=== PATIENT | female | born 1995 | race African-American/Black ===

== ENCOUNTER 2021-11-25 03:00 | Inpatient (IN) | payer MEDICAID ==
[~2021-11-25] VITALS: Ht 160 cm; Wt 86.8 kg
[2021-11-25] VITALS (35 sets, daily range): BP systolic 114–167; BP diastolic 57–110; PULSE 85–105; TEMP 97.5–98.2
--- NOTE | 2021-11-25 03:00 | NUR ---
Pt arrives to unit by EMS stretcher with complaint of contractions. Pt states they woke her up from sleep. Denies LOF or vaginal bleeding. Reports good movement. Pt states she just moved here from [place] and has not received care this . She has only been seen in an ED in [place] in September and they determined a due date of 11/20. Pt reports only 1 fetus. Denies headaches, blurry vision or RUQ pain. Pt reports this is her 4 and has had 4 normal vaginal deliveries around her due date. Pt denies every being diagnoses with pre-eclampsia or gestational diabetes with prior pregnancies. Pt arrived with gown on and 18G IV in left forearm. Pt reports having problems with high blood pressure at times but is not on medication. US and toco explained and applied. Vitals obtained. SVE by KellieRN /chris Pt does not appear to be uncomfortable. This RN in room for 20 minutes doing admission intake and no contractions during that time.
--- NOTE | 2021-11-25 03:50 | NUR ---
This RN to bedside to review plan of care. Pt agreeable to plan. When asked if she has had more contractions since arrival pt states "a little one".
--- NOTE | 2021-11-25 04:33 | NUR ---
Pt sleeping upon entering room. Pt up to bathroom to void. Lab at bedside. Reviewed plan of care.
[2021-11-25] MEDS ORDERED: PRENATAL TABLET PO (04:46)
[2021-11-25 04:51] LABS: COLLECTION METHOD CLEAN CATCH
[2021-11-25 04:59] LABS: EOS # 0.1 K/mm3 (0.0-0.7); EOS % 1.3 % (0.0-4.0); GRAN # 4.8 K/mm3 (1.4-6.5); GRAN % 68.8 % (42.2-75.2); HEMOGLOBIN 10.7 g/dl (12.5-16.0); LYMPH # 1.2 K/mm3 (1.2-3.4); LYMPH % 17.6 % (20.0-51.0); MEAN CELL VOLUME 98 fl (80.0-100.0); MEAN CORPUSCULAR HEMOGLOBIN 33 pg (27-31); MEAN CORPUSCULAR HGB CONC 34 g/dl (33.0-37.0); MEAN PLATELET VOLUME 10.6 fl (7.4-10.4); MONO # 0.8 K/mm3 (0.1-0.6); MONO % 11.7 % (1.7-9.3); PLATELET COUNT 188 K/mm3 (130-400); RED BLOOD COUNT 3.26 M/mm3 (4.10-5.30); REDCELL DISTRIBUTION WIDTH-CV 12.8 % (11.5-14.5)
--- NOTE | 2021-11-25 05:00 | NUR ---
Category 1 FHR tracing obtained. Monitors off. Plan of care reviewed.
[2021-11-25 05:03] LABS: HEMATOCRIT 31.8 % (37.0-47.0)
[2021-11-25 05:04] LABS: MUCOUS Present (NOT PRESENT); PH 6 (5-8); SQUAMOUS EPITHELIAL 0-2 /hpf (0-10); URINE APPEARANCE Clear (CLEAR/HAZY); URINE BACTERIA None Seen /hpf (NONE SEEN); URINE BILIRUBIN Negative (NEGATIVE); URINE BLOOD Negative (NEGATIVE); URINE COLOR Yellow (YELLOW); URINE GLUCOSE 1+ (NEGATIVE); URINE KETONE Negative (NEGATIVE); URINE LEUKOCYTE ESTERASE Negative (NEGATIVE); URINE NITRATE Negative (NEGATIVE); URINE PROTEIN(semi-quant) Negative (NEGATIVE); URINE RBC 0-2 /hpf (0-2)
[2021-11-25 05:16] LABS: TRICYCLIC ANTIDEPRESS URINE NEGATIVE
[2021-11-25 05:19] LABS: ALBUMIN 2.7 gm/dL (3.5-5.0); BILIRUBIN,TOTAL 0.4 mg/dL (0.2-1.2); CALCIUM 8.9 mg/dL (8.4-10.2); CREATININE, serum 0.64 mg/dL (0.57-1.11); POTASSIUM 3.6 mmol/L (3.5-4.5); TOTAL PROTEIN 6.3 gm/dL (6.2-8.1)
[2021-11-25 05:58] LABS: HIV 1/2 Antibodies Non-Reactive; HIV-1p24 Antigen Non-Reactive
--- NOTE | 2021-11-25 07:40 | NUR ---
plan of care discussed and pt updated. call light within reach. pt oriented to room.
--- NOTE | 2021-11-25 08:27 | NUR ---
sr. social media & mobile manager called. updated on plan of care for patient.
--- NOTE | 2021-11-25 15:12 | NUR ---
ANESTHESIA CALLED FOR EPIDURAL
--- NOTE | 2021-11-25 16:12 | NUR ---
THEA responded to consult. The patient came into today with contractions. The patient has had no care and per an ultrasound today, she is 37.5 weeks. The hospital is admitting her to be induced. The patient is also concerned about insurance and her stay being covered here. THEA met with the patient. The patient lives in [place] with her four other children. They are 7, 5, 3, and 2-years old. The patient states that her partner, (Young Finch), the father of her children and the one on the way is staying with their children while she is here. She states that her sister, Cecy, will be coming to [place] to stay with their children, so Young can come up to the hospital. She states that she moved here in April to be closer to her family. She has family that live in [place] and [place]. She states that Young stayed back in [place], because he has other children that live there. She states that she is not working, but Young is their financial support. THEA addressed how the patient did not have care. The patient states that she found out she was right before she moved to [place]. She states that she has [place] Medicaid and it does not cover healthcare in [place], so she did not want to or could afford [id number] costs. She states that she was taking vitamins during . The patient reports that she did go back to [place] in September and had an ER visit to confirm how far along she was and the sex of the baby. The patient reports that she has a carseat and bassinet for baby. She states that she has not applied or WIC yet. THEA provided her with [facility]'s Resource Guide and located the number for her to call to apply or WIC. The patient expressed her concerns about her hospital stay being covered and care afterwards. THEA had consulted Financial Counselor, Shabbir. Shabbir plans to meet with the patient to complete a Medicaid application and FAA. The patient had no other concerns for THEA. THEA made a CPS report, due to no care. CPS ID#[id number].
--- NOTE | 2021-11-25 17:40 | NUR ---
1705 Pt requests SVE due to pressure. This RN SVE /+1. 1708 SANDRA CALLED FOR DELIVERY. says pt was passed off to Melany 1709 Melany called for delivery. 1720 Melany in patient's room. Pt pushes with three contractions. 1731 Spontaneous delivery of viable male infant. bulb suctioned and stimulated. to patient's abdomen. Cord clamped by Dr. Mosley and cut by SHAYY. Erasto Johns takes over care of infant. 1734 Spontaneous delivery of placenta. Pitocin bolus started per protocol. No lacerations noted by Dr. Mosley. Fundal massage done. Firm/midline. Scant amt of bleeding noted. Pericare done. Clean pad placed. Safety precautions and plan of care discussed. Pt verbalizes understanding.
[2021-11-25 18:00] LABS: HEPATITIS B SURFACE ANTIGEN Negative (Negative)
[2021-11-26] VITALS: BP 138/96; PULSE 93; TEMP 98.3
[2021-11-26 03:45] VITALS: BP 116/65; PULSE 107; TEMP 98.8
[2021-11-26 06:57] VITALS: BP 140/93; PULSE 91; TEMP 97.8
[2021-11-26] MEDS ORDERED: MOTRIN 800800 MG/TAB PO (07:57)
--- NOTE | 2021-11-26 09:12 | NUR ---
Initial visit; Patient thanked Aircraft Maintenance Technician for looking in on her and her son. Aircraft Maintenance Technician offered congratulations and God's blessing for the of her son and choosing our hospital of which Mom stated she has had a wonderful experience here at [facility].
--- NOTE | 2021-11-26 11:29 | NUR ---
refractory worker met with patient after receiving consult. Met with patient at bedside. Patient holding baby and attentive to needs during interaction. Patient states that she just moved here from [place] to be closer to her support system. Patient verbalized to this SW that she is planning on staying in [place]. Patient states her sister Cecy lives in [place]. Patient currently lives at home with FOB. They are not . This is the patient's 5th child. Her other children are staying with her sister in [place] while she is in the hospital. Patient did not receive care in [place] and had not established care here. Patient arrived to unit after contacting EMS for possible labor. Patient does voice concern about affording things and has denied medical services for baby while here in fear of cost. SW spoke with the patient about the importance of getting the baby established with a physician after discharge. Offer to have our financial counselor meet with the patient to complete a [employer] application which the patient accepts. Patient also verbalized that she is planning on getting established with [facility]. Educated her that the [facility] was in the same building and that they can offer services to care for her and baby as well. No evidence of drug use identified. Patient verbalized that she has everything to care for baby such as a crib, car seat, diapers and formula. Patient is planning on pumping and supplementing with formula to which she reports she is stocking up on. Encouraged her to reach out to the [facility]/ WIC if she runs out and cannot find any. Patient is provided the [employer] Resource Guide and reviewed resources together. No other needs at this time. After collaborating with patient's RN, no other concerns addressed.
[2021-11-26 12:15] VITALS: BP 142/92; PULSE 104; TEMP 98.1
[2021-11-26 16:32] VITALS: BP 140/106; PULSE 94; TEMP 97.4
== END 2021-11-26 19:30 | disposition home or self-care (01) | DRG 807 ==
LOC: LDRO 03:00 → LDR 10:33 → OB 21:00
PROVIDERS: ADMIT Obstetrics & Gynecology
PROC: 10E0XZZ Delivery of Products of Conception, External Approach (ICD-10-PCS; principal; 2021-11-25)
PROC: 10907ZC Drainage of Amniotic Fluid, Therapeutic from Products of Conception, Via Natural or Artificial Opening (ICD-10-PCS; 2021-11-25)
DX: O13.4 Gestational [pregnancy-induced] hypertension without significant proteinuria, complicating childbirth (principal); Z37.0 Single live birth; Z3A.37 37 weeks gestation of pregnancy
CPT/HCPCS: J2540; J2590; J7120